=== PATIENT | female | born 1955 | race Caucasian/White ===

== ENCOUNTER → 2016-04-29 | Outpatient (CLI) | payer BC | LOC: BHSO 11:21 | DX: F31.81 Bipolar II disorder (principal) ==

== ENCOUNTER → 2016-10-23 | Outpatient (CLI) | payer BC | LOC: BHSO 14:25 | DX: F31.81 Bipolar II disorder (principal) ==

== ENCOUNTER → 2017-03-20 | Outpatient (CLI) | payer BC | LOC: BHSO 11:18 | DX: F31.81 Bipolar II disorder (principal) ==

== ENCOUNTER → 2017-08-21 | Outpatient (CLI) | payer BC | LOC: BHSO 13:58 | DX: F31.81 Bipolar II disorder (principal) | CPT/HCPCS: G0463 ==

== ENCOUNTER 2017-12-19 15:37 | Emergency (ER) | payer BC ==
[~2017-12-19] VITALS: Ht 162.6 cm; Wt 65.9 kg
[2017-12-19 15:42] VITALS: BP 125/75
[2017-12-19] MEDS ORDERED: SYNTHROID0.075 MG/T PO (16:18)
[2017-12-19] MEDS ORDERED: DESYREL 100MG100 MG PO (16:20)
[2017-12-19 17:57] VITALS: PULSE 64
== END 2017-12-19 17:57 | disposition home or self-care (01) ==
LOC: COL.ER 15:37
DX: M23.91 Unspecified internal derangement of right knee (principal); M71.21 Synovial cyst of popliteal space [Baker], right knee; X50.0XXA Overexertion from strenuous movement or load, initial encounter

== ENCOUNTER → 2018-03-13 | Outpatient (CLI) | payer BC ==
[~2018-03-13] MED LIST: DESYREL 100MG100 MG PO; SYNTHROID0.075 MG/T PO
== END ==
LOC: MC.RAD 11:33
DX: Z12.31 Encounter for screening mammogram for malignant neoplasm of breast (principal)

== ENCOUNTER → 2018-04-17 | Outpatient (CLI) | payer BC | LOC: BHSO 09:39 | DX: F31.81 Bipolar II disorder (principal) | CPT/HCPCS: G0463 ==

== ENCOUNTER → 2018-12-22 | Outpatient (CLI) | payer BC | LOC: BHSO 10:32 | DX: F41.1 Generalized anxiety disorder (principal) | CPT/HCPCS: G0463 ==

== ENCOUNTER → 2020-01-13 | Outpatient (CLI) | payer BC | LOC: BHSO 11:27 | DX: F31.81 Bipolar II disorder (principal) | CPT/HCPCS: G0463 ==

== ENCOUNTER → 2020-04-20 | Outpatient (CLI) | payer MEDICARE, BC | LOC: MC.RAD 11:08 | DX: Z12.31 Encounter for screening mammogram for malignant neoplasm of breast (principal) ==

== ENCOUNTER → 2022-05-21 | Outpatient (CLI) | payer MEDICARE, BC | LOC: MC.RAD 11:09 | DX: Z12.31 Encounter for screening mammogram for malignant neoplasm of breast (principal) ==